=== PATIENT | female | born 1950 | race Caucasian/White ===

== ENCOUNTER 2024-05-30 14:06 | Emergency (ER) | payer MEDICARE, OTHER ==
[2024-05-30] MEDS: Acetaminophen/HYDROcodone 325-5 MG Tab PO ONE (16:52)
[2024-05-30] MEDS: Ketorolac 30 MG/ML SDV IM ONE (16:52)
== END 2024-05-30 18:30 | disposition home or self-care (01) ==
LOC: JD.ED 14:06
DX: M25.561 Pain in right knee (principal); Z88.1 Allergy status to other antibiotic agents; Z91.040 Latex allergy status
CPT/HCPCS: 73562; 96372; 99283; A9270; J1885